=== PATIENT | male | born 1950 | race Caucasian/White ===

== ENCOUNTER → 2021-01-02 | Outpatient (CLI) | payer MEDICARE, OTHER ==
[~2021-01-02] MED LIST: ARICEPT 5 MG TAB5 MG PO; ASPIRIN EC81 M1 PO; AUGMENTIN 875-1 EACH PO; BISACODYL SUPP10 MG RE; COLACE100 MG; DIOVAN HCT 1601 EACH PO; DIOVAN HCT 3201 EAC1 PO; FLEXERIL PO; FLOMAX0.4 MG PO; HYDROCODON-ACE1 EACH PO; LOVENOX; NORVASC10 MG PO; OXYIR5 MG; PERCOCET 5-3251 EACH; PLAQUENIL200 MG PO; PRILOSEC 20 MG20 MG PO; STOOL SOFTENER1 EAC2 PO; TRAMADOL 50 MG50 MG PO; XARELTO10 MG PO
== END ==
LOC: M.ULTRA 08:59
PROVIDERS: ATTEND Family Medicine
DX: R22.1 Localized swelling, mass and lump, neck (principal)

== ENCOUNTER → 2021-01-12 | Outpatient (CLI) | payer MEDICARE, OTHER | LOC: M.LAB 12:00 → M.CT 13:00 | PROVIDERS: ATTEND Family Medicine | DX: R22.1 Localized swelling, mass and lump, neck (principal); J84.9 Interstitial pulmonary disease, unspecified; R35.0 Frequency of micturition; I70.0 Atherosclerosis of aorta; F17.200 Nicotine dependence, unspecified, uncomplicated; N50.812 Left testicular pain ==